=== PATIENT | male | born 1995 | race Caucasian/White ===

== ENCOUNTER 2022-01-03 10:30 | Emergency (ER) | payer OTHER ==
[~2022-01-03] VITALS: Ht 180.3 cm; Wt 104.1 kg
[2022-01-03 10:46] VITALS: BP 149/98
[2022-01-03 11:03] LABS: COVID AG,FIA SOURCE NASAL SWAB
[2022-01-03 11:29] LABS: INFLUENZA TYPE B NEGATIVE FOR TYPE B (NEGATIVE)
[2022-01-03 12:11] LABS: INFLUENZA TYPE A POSITIVE FOR TYPE A (NEGATIVE)
[2022-01-03] MEDS ORDERED: GUAIFDM PO (12:49)
[2022-01-03] MEDS ORDERED: ACET-66 PO (12:49)
[2022-01-03] MEDS ORDERED: IBUP-1554 PO (12:49)
== END 2022-01-03 13:10 | disposition home or self-care (01) ==
LOC: EMS 10:34
DX: J06.9 Acute upper respiratory infection, unspecified (principal); Z20.822 Contact with and (suspected) exposure to COVID-19; F10.20 Alcohol dependence, uncomplicated; F12.90 Cannabis use, unspecified, uncomplicated; R42 Dizziness and giddiness; R68.83 Chills (without fever)
CPT/HCPCS: 87804; 99283

== ENCOUNTER 2022-11-17 08:15 | Emergency (ER) | payer OTHER ==
[~2022-11-17] VITALS: Ht 170.2 cm; Wt 86.4 kg
[~2022-11-17 08:15] MED LIST: ACET-66 PO; GUAIFDM PO; IBUP-1554 PO
[2022-11-17 08:21] VITALS: TEMP 98.5
[2022-11-17 08:38] LABS: COVID AG,FIA SOURCE NASAL SWAB
[2022-11-17 09:15] LABS: RAPID GROUP A STREP NEGATIVE (NEGATIVE)
[2022-11-17 09:18] LABS: SARS-COV2 (COVID) ANTIGEN,FIA Negative (Negative)
[2022-11-17 09:19] LABS: INFLUENZA TYPE A NEGATIVE FOR TYPE A (NEGATIVE); INFLUENZA TYPE B NEGATIVE FOR TYPE B (NEGATIVE)
[2022-11-17 11:45] VITALS: BP 138/84; PULSE 70; RESP 12
== END 2022-11-17 12:03 | disposition home or self-care (01) ==
LOC: EMS 08:28
DX: J06.9 Acute upper respiratory infection, unspecified (principal); Z20.822 Contact with and (suspected) exposure to COVID-19
CPT/HCPCS: 87430; 87804; 99283